=== PATIENT | female | born 1960 | race Caucasian/White ===

== ENCOUNTER 2023-08-04 05:48 | Emergency (ER) | payer OTHER ==
[~2023-08-04] VITALS: Ht 152.4 cm; Wt 52.2 kg
[2023-08-04 06:09] VITALS: BP 147/78; PULSE 65; RESP 16; TEMP 98; O2SAT 98
[2023-08-04] MEDS: KETOROLAC TROMETH 60MG/2ML VIAL IM ONE (07:40)
[2023-08-04] MEDS ORDERED: NAPR-746 PO (08:18)
== END 2023-08-04 08:31 | disposition home or self-care (01) ==
LOC: ER 05:48
DX: S83.8X2A Sprain of other specified parts of left knee, initial encounter (principal); M76.9 Unspecified enthesopathy, lower limb, excluding foot; M89.9 Disorder of bone, unspecified; Z88.8 Allergy status to other drugs, medicaments and biological substances; Z79.899 Other long term (current) drug therapy; X58.XXXA Exposure to other specified factors, initial encounter; Y93.89 Activity, other specified; Y92.89 Other specified places as the place of occurrence of the external cause; Y99.8 Other external cause status
CPT/HCPCS: 73562; 96372; 99283; J1885